=== PATIENT | male | born 1965 | race Caucasian/White ===

== ENCOUNTER 2021-03-19 05:58 | Day surgery (SDC) | payer MEDICAID ==
[~2021-03-19] VITALS: Ht 180.3 cm; Wt 111.2 kg
[~2021-03-19 05:58] MED LIST: ASPI325T6 PO; CEPHALEXIN500 M1 PO; CLEOCIN HCL300 MG PO; COLACE 100100 MG/CAP PO; FLEXERIL10 MG PO; HYDROCODONE/APAP; IBU800 M1 PO; LORTAB 5/500 501 TAB PO; LORTAB 7.5/5001 TAB PO; NAPROSYN500 MG PO; NEURONTIN300 MG/CAP PO; NO HOME MEDICATIONS; NORCO 325 MG-51 TAB PO; PENICILLIN250 MG PO; PERCOCET 325 MG1 TAB PO; PREVACID 30MG30 M1 PO; PROTONIX 40MG T40 MG PO; VALIUM 5MG T5 MG/TAB PO
[2021-03-19] MEDS ORDERED: VITAMIN C500 MG PO (07:27)
[2021-03-19] MEDS ORDERED: FOLIC ACID0.4 MG PO (07:28)
[2021-03-19] MEDS ORDERED: IRON TABLETS325 MG PO (07:28)
[2021-03-19] MEDS ORDERED: ULTRAM 50MG TAB50 MG PO (07:29)
[2021-03-19] MEDS ORDERED: NORVASC 10MG10 MG PO (07:29)
[2021-03-19] MEDS ORDERED: ATARAX 25MG25 MG/TAB PO (07:30)
[2021-03-19] MEDS ORDERED: PROTONIX 40MG T40 MG PO (07:30)
[2021-03-19] MEDS ORDERED: CEPHALEXIN500 M1 PO (07:30)
[2021-03-19] MEDS ORDERED: LASIX 40MG TABL40 MG PO (07:31)
[2021-03-19 07:56] VITALS: BP 111/80; PULSE 92; TEMP 97.7
[2021-03-19 08:01] LABS: TRICYCLIC ANTIDEPRESS URINE NEGATIVE
--- NOTE | 2021-03-19 08:40 | NUR ---
Patient tested urine drug screen was positive, Emmanuel BENTON notified. Dr. Marmolejo also notified. Surgery cancelled.
--- NOTE | 2021-03-19 10:23 | NUR ---
PATIENT ESCORTED TO PATIENT ENTRANCE VIA AMBULATION AND LEFT IN THE CARE OF FRIEND.
== END 2021-03-19 10:29 | disposition home or self-care (01) ==
LOC: SURG 05:58 → INPTSU 05:58 → SDCO 05:58 → INPTSU 10:29 → SURG 10:30 → EDSTATUS 10:30
PROVIDERS: Registered Nurse
DX: M19.011 Primary osteoarthritis, right shoulder (principal); Z53.09 Procedure and treatment not carried out because of other contraindication; I10 Essential (primary) hypertension; R12 Heartburn; Z79.899 Other long term (current) drug therapy
CPT/HCPCS: OP